=== PATIENT | female | born 1990 | race Caucasian/White ===

== ENCOUNTER 2023-01-11 08:09 | Inpatient (IN) ==
[2023-01-11] MEDS ORDERED: Buffered Lidocaine 1% SYRIN 1 ml INTRADERM ONE ×2 (09:06→11:06)
[2023-01-11 09:22] LABS: Urine Appearance Cloudy; Urine Bilirubin Negative (Negative); Urine Blood Negative (Negative); Urine Color Straw; Urine Glucose Negative (Negative); Urine Ketones Negative (Negative); Urine Nitrite Negative (Negative); Urine Protein Negative (Negative); Urine Specific Gravity 1.005 (1.002-1.030); Urine Urobilinogen Negative (Negative)
[2023-01-11 10:31] LABS: Urine Bacteria Absent (Absent); Urine Red Blood Cell Trace(0-2/hpf) (Absent); Urine Squamous Epithelial Cell Present (Absent); Urine White Blood Cell 2+(11-20/hpf) (Absent)
[2023-01-11] MEDS ORDERED: Lidocaine 1% VIAL 10 MG/ML 30 ML VIAL INJ PRN (11:06)
[2023-01-11] MEDS ORDERED: Lactated Ringers 1000 ml BAG 1,000 ML IV ONE ×3 (11:06→15:31)
[2023-01-11] MEDS ORDERED: Nalbuphine 10 MG/ML 1 ML VIAL IV PRN (11:06)
[2023-01-11] MEDS ORDERED: Promethazine INJ(RESTRICTED) 25 MG/ML 1 ml VIAL IV PRN (11:06)
[2023-01-11] MEDS ORDERED: Lidocaine 2% JELLY 6 ML Topical TOPICAL ONE (11:41)
[2023-01-11 12:07] LABS: Urine Benzodiazepine Screen None Detected (None Detect); Urine Cannabinoids Screen None Detected (None Detect); Urine Opiates Screen None Detected (None Detect)
[2023-01-11] MEDS ORDERED: Lidocaine 1.5% EPI 1:200,000 30 ML SDV ONE (14:20)
[2023-01-11] MEDS ORDERED: OBEPIDURAL (200 ML) 200 ML EPIDURAL ONE (14:20)
[2023-01-11 14:22] LABS: ABS Basophils 0.1 10^3/uL (0.0-0.1); ABS Lymphocytes 1.7 10^3/uL (1.0-4.8); ABS Neutrophils 11.6 10^3/uL (1.5-7.6); ABS Nucleated RBC 0.01 10^3/ul; Eosinophil % 0.1 %; Hematocrit 39.3 % (35-45); Hemoglobin 13.3 g/dL (11.5-14.3); Lymphocyte % 11.9 %; Mean Corpuscular Hemoglobin 31.7 pg (27-33); Mean Corpuscular Volume 93.3 fL (80-97); Mean Platelet Volume 9.1 fL (7.5-11.2); Nucleated Red Blood Cells % 0.1 %/100WBC (0.0-0.8); Platelet Count 187 10^3/uL (150-450); Red Blood Count 4.21 10^6/uL (3.63-4.92); Red Cell Distribution Width 12.6 % (12-17); White Blood Count 14.4 10^3/uL (3.8-11.8)
[2023-01-11] MEDS: Lactated Ringers 1000 ml BAG 1,000 ML IV SCH ×2 (14:37→17:03)
[2023-01-11] MEDS ORDERED: Phenylephrine 40 mcg/mL 10mL (400mcg) SYRINGE IV PUSH PRN ×2 (15:31)
[2023-01-11] MEDS ORDERED: Sodium Citrate/Citric Acid LIQ 15 ML UDC PO PRN (15:31)
[2023-01-11] MEDS ORDERED: OBEPIDURAL (200 ML) 200 ML EPIDURAL SCH (16:00)
[2023-01-11] MEDS ORDERED: Lactated Ringers 1000 ml BAG 1,000 ML IV SCH ×2 (16:00→20:00)
[2023-01-11] MEDS ORDERED: Oxytocin in LR 20,000 MILLI.UNIT/1,000 ML BAG IV ONE (17:23)
[2023-01-11] MEDS ORDERED: Glycerin ADULT 2.4 gm SUPP PR PRN (19:13)
[2023-01-11] MEDS ORDERED: Witch Hazel PAD JAR TOPICAL PRN (19:13)
[2023-01-11] MEDS ORDERED: Oxytocin in LR 20,000 MILLI.UNIT/1,000 ML BAG IV SCH (19:15)
[2023-01-11] MEDS ORDERED: Ondansetron 4 mg VIAL 2 MG/ML 2 ml VIAL IV PRN (19:24)
[2023-01-11] MEDS: Dibucaine 1% OINT 28.35 GM TUBE PR PRN (20:29)
[2023-01-11] MEDS ORDERED: Hemorrhoidal OINT 1 TUBE PR PRN (22:25)
[2023-01-12] MEDS: Hydrocortisone 1% Oint(NF) 30 GM TUBE TOPICAL SCH ×4 (05:19→20:15)
[2023-01-12 07:33] LABS: ABS Basophils 0.1 10^3/uL (0.0-0.1); ABS Eosinophils 0.1 10^3/uL (0.0-0.5); ABS Lymphocytes 1.9 10^3/uL (1.0-4.8); ABS Monocytes 1.5 10^3/uL (0.0-0.9); ABS Neutrophils 14.3 10^3/uL (1.5-7.6); Eosinophil % 0.4 %; Hematocrit 29.2 % (35-45); Hemoglobin 10.1 g/dL (11.5-14.3); Lymphocyte % 10.8 %; Mean Corpuscular Hemoglobin 31.9 pg (27-33); Mean Corpuscular Hgb Conc 34.6 g/dL (31-36); Mean Corpuscular Volume 92.2 fL (80-97); Mean Platelet Volume 8.6 fL (7.5-11.2); Platelet Count 168 10^3/uL (150-450); Red Blood Count 3.16 10^6/uL (3.63-4.92); Red Cell Distribution Width 12.8 % (12-17); White Blood Count 17.9 10^3/uL (3.8-11.8)
[2023-01-12] MEDS ORDERED: RHO D Immune Globulin (HUMAN) 300 MCG = 1,500 I.U. INJ IM ONE (13:52)
[2023-01-13 08:36] VITALS: BP 94/52
[2023-01-13] MEDS: Dibucaine 1% OINT 28.35 GM TUBE PR PRN (12:58)
== END 2023-01-13 13:53 | disposition home or self-care (01) | DRG 560 ==
LOC: MCHOBOUT 08:09 → MCHOB 10:54
PROVIDERS: ADMIT Advanced Practice Midwife; ATTEND Obstetrics & Gynecology